=== PATIENT | female | born 1970 | race African-American/Black ===

== ENCOUNTER 2017-10-15 01:15 | Emergency (ER) | payer BC, OTHER ==
[2017-10-15] MEDS ORDERED: Lidocaine Viscous Sol 2% 15 ml UD Cup ONE (02:39)
== END 2017-10-15 03:27 | disposition home or self-care (01) ==
LOC: ERS 01:15
DX: J38.7 Other diseases of larynx (principal); I10 Essential (primary) hypertension; F17.210 Nicotine dependence, cigarettes, uncomplicated; Z79.899 Other long term (current) drug therapy
CPT/HCPCS: 99282

== ENCOUNTER 2017-10-17 23:59 | Emergency (ER) | payer BC | END 2017-10-18 00:35 | disposition home or self-care (01) | LOC: ERS 23:59 | DX: F41.1 Generalized anxiety disorder (principal); J39.2 Other diseases of pharynx; I10 Essential (primary) hypertension; F17.210 Nicotine dependence, cigarettes, uncomplicated; Z79.899 Other long term (current) drug therapy; Z71.6 Tobacco abuse counseling | CPT/HCPCS: 93005; 99406 ==

== ENCOUNTER 2017-10-20 02:53 | Emergency (ER) | payer BC ==
[2017-10-20 04:02] LABS: Anion Gap 10 mmol/L (10-20); BUN (Urea Nitrogen) 10 mg/dL (7.0-18.7); Calc. Creatinine Clearance 0 mL/min (70-130); Calcium 8.5 mg/dL (7.8-10.44); Carbon Dioxide 27 mmol/L (22-29); Chloride 108 mmol/L (98-107); Estimated GFR-MDRD Greater than 90; Glucose 87 mg/dL (70-105); Potassium 3.4 mmol/L (3.5-5.1); Sodium 142 mmol/L (136-145)
--- NOTE | 2017-10-31 11:45 | EKG ---
Test Reason : Blood Pressure : / mmHG Vent. Rate : 067 BPM Atrial Rate : 067 BPM P-R Int : 152 ms QRS Dur : 086 ms QT Int : 412 ms P-R-T Axes : 020 033 031 degrees QTc Int : 435 ms Normal sinus rhythm Normal ECG Confirmed by JAYDE AJMIL, WINDY Diane ([id number]), market editor NELY JIMENEZ ([id number]) on 10/31/2017 11:44:21 AM Referred By: Confirmed By:WINDY DONOHUE MD
== END 2017-10-20 04:57 | disposition home or self-care (01) ==
LOC: ERS 02:53
DX: R60.0 Localized edema (principal); I10 Essential (primary) hypertension; F17.210 Nicotine dependence, cigarettes, uncomplicated; Z79.899 Other long term (current) drug therapy
CPT/HCPCS: 36415; 80048; 82550; 83880; 85025; 85060; 93005; 99406

== ENCOUNTER 2017-10-21 12:44 | Inpatient (IN) | payer BC ==
[~2017-10-21 12:44] MED LIST: ISOVUE-370 76%-LOCM 1 ML ONE
[2017-10-21 12:51] VITALS: BMI 32.1
[2017-10-21] MEDS ORDERED: HYDROcodone/Acetaminophen 10/325 mg Tablet PO PRN ×2 (14:29)
[2017-10-21] MEDS ORDERED: Acetaminophen 325 MG TAB PO PRN (14:29)
[2017-10-21] MEDS ORDERED: Furosemide 40 MG/4 ML VIAL SLOW IVP SCH (14:45)
[2017-10-21 14:54] LABS: #Eosinphils 0.2 thou/uL (0.0-0.7); #Lymphocytes 1.3 thou/uL (1.20-3.40); #Monocytes 0.7 thou/uL (0.11-0.59); #Neutrophils 5.5 thou/uL (1.40-6.50); %Basophils 0.5 % (0.0-1.0); %Eosinophils 2.4 % (0.0-10.0); %Lymphocytes 16.4 % (21.0-51.0); %Monocytes 8.9 % (0.0-10.0); %Neutrophils 71.7 % (42.0-75.0); Hemoglobin 6.2 g/dL (12.0-16.0); Mean Corpuscular HGB CONC 30.4 g/dL (32.0-36.0); Mean Corpuscular Volume 72.2 fl (81.0-99.0); Mean Platelet Volume 7.2 fL (7.4-10.4); Platelet Count 525 thou/uL (130-400); Red Blood Cell (RBC) Count 2.81 mill/uL (4.20-5.40); White Blood Cell (WBC) Count 7.7 thou/uL (4.8-10.8)
[2017-10-21 15:29] LABS: CKMB 0.8 ng/mL (0-6.6); Troponin I 0.061 ng/mL (< 0.028)
[2017-10-21] MEDS: Sodium Chloride 0.9% 1,000 ML IV SCH (16:35)
--- NOTE | 2017-10-21 16:47 | RAD ---
TWO VIEW CHEST: History: Shortness of breath. Comparison: 11-19-16 FINDINGS: Heart size is upper normal. Lungs are clear. No infiltrates seen. No effusion. Osseous structures are unremarkable. IMPRESSION: No acute finding. POS: [facility]
[2017-10-21] MEDS: Ondansetron HCl/PF 4 MG/2 ML Vial SLOW IVP PRN ×2 (16:56→22:53)
[2017-10-21 18:15] LABS: Prothrombin Time 13.7 SEC (12.0-14.7)
[2017-10-21 18:41] LABS: BHCG - Serum Negative (NEGATIVE); Pregs Control Background? CLEAR/WHITE (CLR/WHITE); Pregs Control Bar Appear? YES (CONTROL BAR)
[2017-10-21 18:42] LABS: CKMB 0.7 ng/mL (0-6.6); Troponin I 0.061 ng/mL (< 0.028)
--- NOTE | 2017-10-21 20:49 | HP ---
PRIMARY CARE PHYSICIAN: Jerome Mayberry MD CHIEF COMPLAINT: Shortness of breath. HISTORY OF PRESENT ILLNESS: The patient has bounced back to the emergency department several times o wendi the last week complaining of shortness of breath and lower extremity edema which was found to be pitting my exam when seen yesterday in clinic. She does report intermittent gastrointestinal bleed b oth bright red and dark tarry per rectum last known GI bleeding in stool was this weekend. The patie nt states that she has had a sore throat, possibly secondary to gastroesophageal reflux disease sympt oms and was taking increasingly higher levels of Aleve and ibuprofen on an outpatient basis for this pain. She was given a dose of steroids and Lasix in the emergency department which she had completed the steroids and only just started the Lasix on an outpatient basis for lower extremity edema. Labs on the outside of the hospital, hemoglobin found to be 6.0 with abnormal platelets. She had stopped taking her iron pill for iron deficiency anemia. Months prior, she was lost to follow up regarding her cervical cancer and she has seen Dr. Magaña on an outpatient basis regarding prior cardiology poncho p. The patient was directed for direct admission for blood transfusion given symptomatic anemia. Sh e verbalized understanding and presented to the hospital. FORMAL REVIEW OF SYSTEMS: No fevers, no chills. Positive fatigue. No cough. Positive sore throat. No chest pain. Positive shortness of breath, lower extremity edema is positive. No abdominal pain . Positive gastrointestinal bleeding. No nausea, vomiting, or constipation currently. No headache or vision changes. No vaginal bleeding per patient. 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 The patient failed to follow up last appointment. The patient is a nonsmoker. No current alcoh ol use reported. Mother with diabetes, father with history of heart disease. OUTPATIENT MEDICATIONS: New start pantoprazole x24 hours, metoprolol 25 mg, lisinopril 2.5 mg, mitchel us sulfate 325 mg restarted yesterday on an outpatient basis, held the patient's statin secondary to myositis issues. The patient failed to follow up or establish care either with Dr. Solares on outpatie nt basis for Rheumatology. Stress test performed last year was somewhat positive; however, a heart c atheterization was negative. Last reported treatment with cisplatin was 12/12/2015. PHYSICAL EXAMINATION: VITAL SIGNS: Temperature of 98.9, pulse of 68, respiratory rate of 16, oxygen saturation 98% on room air, blood pressure 133/73. GENERAL: The patient is alert and oriented, no acute distress. HEENT: Normocephalic, atraumatic. Extraocular movements are intact. Poor dentition is noted. NECK: Supple. HEART: Regular rate and rhythm. No murmurs auscultated. LUNGS: Clear to auscultation bilaterally. No rubs or wheezes. ABDOMEN: Soft, nontender, positive bowel sounds throughout. : Digital rectal exam produced no stool in rectal vault. No gross bleeding. No gross hemorrhoids found on exam. NEUROLOGIC: The patient is alert and oriented x3, no focal deficits. Speech is normal. EXTREMITIES: Lower extremities with 2+ pitting edema bilaterally. LABORATORY WORK: Troponin 0.061, hemoglobin of 6.2, platelet count of 529, MCV of 72. Outpatient ch emistry: Potassium of 3.3, 142 sodium, 107 chloride, 28 CO2, BUN of 9, creatinine of 0.77, total sarwat irubin 0.3, AST of 72, ALT of 132. BNP of 121, albumin of 3.5. The patient typed and crossed for 2 units red blood cells, found to have antibody positive. Chest x-ray without acute cardiopulmonary ev ents. CT abdomen pending. ASSESSMENT AND PLAN: Symptomatic anemia secondary to gastrointestinal bleed and iron deficiency, cer vical cancer, autoimmune myositis, making the patient n.p.o. until seen by GI for determination of po ssible upper or lower scopes. We will cover with IV fluids in the interim. Given the patient's lowe r extremity edema, we will cover with Lasix in between units of packed red blood cells. We will cont inue patient's home medications regarding her history of abnormal stress test. Her troponin is indet erminate, again which has been positive for over the last 2 years without remission with a clean cath eterization last year. We will go ahead and trend at this point in time. Review EKG. The patient f holly to follow up with Rheumatology on an outpatient basis. May consider restarting prednisone for chronic muscle breakdown. We will follow up on abdomen and pelvis CT, regarding patient's cancer sta tus as she has failed follow up with her, Heme/Onc doctor at [facility] on an outpatient basis i n the last 9 months. We will follow up on GI's recommendations transfusing the patient 2 units PRBCs .
[2017-10-21] MEDS ORDERED: GoLYTELY 4,000 ml Bottle PO SCH (21:00)
--- NOTE | 2017-10-21 21:00 | CT ---
CT ABDOMEN AND PELVIS WITH AND WITHOUT CONTRAST 10/21/17 HISTORY: Cervical cancer. Blood in stool. COMPARISON: None. FINDINGS: On the precontrast image sequence there is nonobstructive punctate calculus in interpolar left kidney . There is moderate left sided hydroureteronephrosis down to the level of the pelvis. No obstructing calculus is seen. There is likely radiation change of the pelvis with abnormal thickening of the mesorectal fat. There is also abnormal thickening of the rectal wall. The presacral soft tissues are thickened and edematou s. There is scarring throughout the pelvic cul-de-sac as well as lower anterior abdominal wall. On e 90 second venous phase as well as the delay phase there is decrease enhancement and decreased contr ast excretion, respectively, of the left kidney. Both ureteral jets, are felt to be seen. This is lik jacqueline left ureteral narrowing due to scar or fibrotic changes. No dilated loops of large or small bowel. Cholelithiasis is present without evidence of cholecystitis . The spleen and pancreas are both unremarkable. Loss of normal trabecula of L4 and L5 likely post radiation in nature. Bilateral IIb lumbosacral arriaga sitional vertebra. IMPRESSION: 1. Likely chronic, partially obstructive distal left ureter with mild to moderate left hydrouret eronephrosis. Although there is a punctate interpolar left renal calculus, this is felt likely due to scarring from likely posttreatment radiation change. 2. Severely abnormal thickening of the rectal wall may be post radiation change in nature. There is also edema or scar in the presacral space and within the medial rectal fat and fascia. 3. Cholelithiasis without cholecystitis. 4. Decreased left sided renal enhancement and delayed excretion of contrast left kidney indicati ng this is somewhat of an obstructive process. POS: [facility]
[2017-10-21 21:20] LABS: CKMB 0.6 ng/mL (0-6.6); Troponin I 0.048 ng/mL (< 0.028)
[2017-10-21] MEDS: Metoprolol Tartrate 25 MG TAB PO SCH (21:49)
[2017-10-21] MEDS: Pantoprazole 40 MG VIAL IVP SCH (21:50)
[2017-10-22] MEDS: Sodium Chloride 0.9% 1,000 ML IV SCH ×3 (04:27→20:51)
--- NOTE | 2017-10-22 05:02 | CON ---
DATE OF CONSULTATION: 10/21/2017 REASON FOR CONSULTATION: Anemia. CONSULTING PHYSICIAN: Dr. Jerome Mayberry. HISTORY OF PRESENT ILLNESS: The patient is a 47-year-old female with past medical history of vitamin D deficiency, autoimmune myositis, GERD, cervical cancer, status post chemotherapy and chronic anemi a presenting with symptomatic anemia. Upon chart review, patient was noted to have been seen in the emergency department several times over the last week complaining of increased shortness of breath an d lower extremity edema with administration of Lasix to assist with lower extremity edema. However, upon routine labs, she was noted to have significantly decreased hemoglobin, which prompted further q uestioning. Per my interview, she states that she has been having intermittent hematochezia characte rized as bright red blood per rectum present in both stool and on the toilet paper for the last year. She states that some blood clots will be present and mixed in with her stool, but not associated wi th increased abdominal pain or rectal irritation rather she would get the "sensation of bleeding and then it would come." Also per chart review and per patient, she had been having increased substernal chest pain and midepigastric abdominal pain for which she had been taking increasing doses of Aleve and ibuprofen for pain control. With this particular pain, she endorses increased nausea and vomitin g monthly that has also been present over the last 6-12 months. She also endorses episodes of regurg itation and acid taste in her mouth, but does not complain of substernal pyrosis. Her most recent ep isode of nausea and vomiting was earlier today with nonbloody emesis, but she has had episodes of suresh ker colored emesis in the past. Her nausea and vomiting is worse with spicy greasy foods as well as some tomato based products and also associated with intermittent episodes of dysphagia where she gets a sensation that food does not adequately move into the stomach. Currently, she denies any fevers, chills, overt abdominal pain, odynophagia, weight loss, or hematemesis. REVIEW OF SYSTEMS: Ten category review of systems was obtained with all responses negative except fo r the pertinent positives as listed in the HPI. PAST MEDICAL HISTORY: As per HPI. PAST SURGICAL HISTORY: Bilateral inguinal hernia repair. FAMILY HISTORY: No GI malignancies. OUTPATIENT MEDICATIONS: Reviewed. ALLERGIES: No known drug allergies. PHYSICAL EXAMINATION: VITAL SIGNS: Temperature of 98.7, pulse 77, blood pressure 166/84, respiratory rate 18, satting 96% on room air. GENERAL: Patient is lying in bed in no acute distress. Alert and oriented x4. NECK: Supple. No JVD noted. CARDIOVASCULAR: Regular rate and rhythm with no discernible murmurs, gallops or rubs. RESPIRATORY: Clear to auscultation bilaterally with no discernible wheezes or rales. ABDOMEN: Normoactive bowel sounds, soft, nontender, nondistended. EXTREMITIES: No cyanosis, clubbing, 1+ edema to mid driscoll was noted bilaterally. LABORATORY DATA: CBC with a white blood cell count of 7.7, hemoglobin 6.2, hematocrit 20.3, and plat elets 525. INR 1.0, troponin trending down at 0.048, negative screen. IMAGING DATA: CT of the abdomen and pelvis obtained on admission showed likely chronic partially obs tructive distal left ureter with mild to moderate left hydroureteronephrosis and it also showed sever jacqueline abnormal thickening of the rectal wall which may be post-radiation change due to treatment of cer vical cancer. Also noted was cholelithiasis without cholecystitis. ASSESSMENT AND PLAN: The patient is a 47-year-old female with past medical history of vitamin D defi ciency, autoimmune myositis, GERD, cervical cancer status post chemo and possible x-ray therapy and c hronic anemia presenting with symptomatic anemia. Symptomatic anemia. The patient was presenting throughout this last week with complaints of increase d shortness of breath and dyspnea on exertion with a significantly decreased H&H noted on routine lab s. She also endorses a history of chronic hematochezia that has been present over the last year, edwina racterized as bright red blood per rectum, both in the toilet and on the toilet paper. She denies an y overt abdominal bleeding or exacerbations of her other symptoms when this bleeding occurs. She als o endorses increased episodes of nausea and vomiting that has also been occurring over the last years , sometimes with darker colored emesis, but no overt hematemesis. Given the history of repeated epis odes of nausea and vomiting, erosive esophagitis within the differential that could potentially creat e GI bleeding and contributing to her symptomatic anemia. However, I think more likely is the repeat ed occurrences of hematochezia as well as severe abnormal thickening of the rectal wall with a histor y of cervical cancer with possible x-ray therapy contributing to a possible radiation proctitis pictu re. With the worsening of her nausea and vomiting with spicy, greasy foods, it does tend lend itself more towards a diagnosis of acid reflux rather than other overt underlying pathology. RECOMMENDATIONS: 1. Would continue to trend her hemoglobin and hematocrit and transfuse as necessary to maintain hemo globin and hematocrit of 7/21. 2. Would continue patient on pantoprazole 40 mg b.i.d. for possible upper gastrointestinal bleeding source and exacerbation of coexisting GERD. 3. We will continue to monitor clinically for signs of overt gastrointestinal bleed. 4. Please make patient n.p.o. at midnight in anticipation of both EGD and colonoscopy tomorrow with GoLYTELY prep administered tonight in anticipation of these procedures. We will continue to follow. Please call with any questions.
[2017-10-22] MEDS ORDERED: Fleet Enema 133 ML BOT FS SCH (07:45)
[2017-10-22] MEDS ORDERED: Ferrous Sulfate 325 MG TAB PO SCH (08:00)
[2017-10-22] MEDS: Ondansetron HCl/PF 4 MG/2 ML Vial SLOW IVP PRN (08:43)
[2017-10-22] MEDS: Pantoprazole 40 MG VIAL IVP SCH ×2 (09:33→20:52)
[2017-10-22] MEDS ORDERED: GoLYTELY 4,000 ml Bottle PO SCH (13:08)
[2017-10-22] MEDS: Lisinopril 5 MG TAB PO SCH (14:06)
[2017-10-22] MEDS: Metoprolol Tartrate 25 MG TAB PO SCH ×2 (14:06→20:52)
[2017-10-22] MEDS: Furosemide 20 MG TAB PO SCH (14:07)
[2017-10-22] MEDS ORDERED: Lidocaine 1% PF 5 ML VIAL ONE (15:50)
--- NOTE | 2017-10-22 17:44 | EKG ---
Test Reason : Blood Pressure : / mmHG Vent. Rate : 062 BPM Atrial Rate : 062 BPM P-R Int : 148 ms QRS Dur : 082 ms QT Int : 408 ms P-R-T Axes : 056 024 034 degrees QTc Int : 414 ms Normal sinus rhythm Normal ECG When compared with ECG of 20-OCT-2017 03:38, (Unconfirmed) No significant change was found Confirmed by DR. Ary FERNANDES ([id number]) on 10/22/2017 5:43:23 PM Referred By: KURTIS Confirmed By:DR. Ary FERNANDES
--- NOTE | 2017-10-22 17:52 | PRG ---
DATE OF SERVICE: 10/22/2017 HISTORY OF PRESENT ILLNESS: The patient states she has improved energy and less shortness of breath following 2 units of PRBCs. Nursing staff report a stool Hemoccult returned positive and also report that the patient underwent poor bowel prep initially, repeated Fleet enema and GoLYTELY prep and is currently back down with Gastroenterology suite for endoscopy. PHYSICAL EXAMINATION: VITAL SIGNS: Temperature of 98.4, pulse of 63, respiratory rate of 18, oxygen saturation 95% on room air, blood pressure 130/73. GENERAL: The patient is alert and oriented, in no acute distress. HEENT: Head is normocephalic, atraumatic. Extraocular movements are intact. Sclerae are clear. Or al mucosa is moist. Poor dentition is noted. NECK: Supple. HEART: Regular rate and rhythm. No murmurs auscultated at the time of exam. LUNGS: Clear to auscultation bilaterally. No rubs or wheezes. ABDOMEN: Soft, nontender, positive bowel sounds throughout. EXTREMITIES: Lower extremities with 2+ pitting edema. No cyanosis present. NEUROLOGIC: The patient is alert and oriented x3, no focal deficits. Speech is normal. LABORATORY DATA: Hemoglobin improved to 28. ASSESSMENT AND PLAN: Symptomatic anemia, much improved following transfusion. Serial hemoglobins re mained stable. Occult blood positive for gastrointestinal bleed. GI, pending scopes. Continuing IV Protonix at this point in time. Regarding the patient's history of cervical cancer, CT did show pro ctitis likely secondary to radiation treatment prior, unclear if this or other etiology causing patie nt's bleed. Follow up on scope per Gastroenterology.
[2017-10-22] MEDS ORDERED: Promethazine HCl 25 MG/ML VIAL SLOW IVP PRN (18:12)
[2017-10-22] MEDS ORDERED: Ondansetron HCl/PF 4 MG/2 ML Vial IVP PRN (18:12)
[2017-10-22] MEDS ORDERED: Morphine Sulfate 2 MG/ML SYRINGE SLOW IVP PRN (18:12)
--- NOTE | 2017-10-22 21:32 | OP ---
DATE OF PROCEDURE: 10/22/2017 PROCEDURE: Esophagogastroduodenoscopy and colonoscopy. PREOPERATIVE DIAGNOSIS: Gastrointestinal bleed. OPERATIVE PROCEDURE IN DETAIL: Informed consent was obtained from the patient. She was sedated with total intravenous anesthesia. The bite block was placed and the endoscope was advanced easily to th e second portion of the duodenum and retroflexion was performed in the stomach. The esophagus was no rmal. The GE junction was normal. The stomach was normal including retroflexed views. The pylorus and first and second portions of the duodenum were normal. The patient was turned around. Rectal ex am was performed that was normal. The colonoscope was advanced to the terminal ileum without difficu lty. The mucosa of the terminal ileum was normal. The ileocecal valve and appendiceal orifice were clearly identified. The preparation quality was good. There was severe radiation colitis of the dis lionel 27 cm of the colon and rectum. There is a more dense patch that looks like more significant pote ntial bleeding source at 20 cm. Argon plasma coagulation was not available today due to an equipment failure. Retroflex views in the rectum were otherwise unremarkable. IMPRESSION: 1. Normal esophagogastroduodenoscopy. 2. 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 There is more dense area a t 20 cm. 3. Otherwise normal ileal colonoscopy. RECOMMENDATIONS: 1. Trial of iron supplementation. She can be given ferrous sulfate 325 mg twice daily. If her hemo globin fails to return to normal, then consider iron IV. 2. If her anemia persists despite the iron or if she has continued overt bleeding, then consider rep eat colonoscopy to attempt argon plasma coagulation to the radiation colitis. This would likely requ eloisa multiple sessions to burn such an extensive area and there is a risk that ultimately bleeding can persist or worsen with despite argon plasma coagulation. 3. Follow up with Dr. Rivas in the office. 4. Recheck her hemoglobin tomorrow morning. If her hemoglobin remains stable and she does not have further overt bleeding, then she can likely discharge home tomorrow. Please note that there was no r ed blood or evidence of active bleeding at the time of the colonoscopy.
[2017-10-23 05:07] LABS: #Basophils 0.1 thou/uL (0.0-0.2); #Eosinphils 0.3 thou/uL (0.0-0.7); #Lymphocytes 1.2 thou/uL (1.20-3.40); #Monocytes 0.8 thou/uL (0.11-0.59); #Neutrophils 5.4 thou/uL (1.40-6.50); %Basophils 0.8 % (0.0-1.0); %Eosinophils 3.4 % (0.0-10.0); %Lymphocytes 15.7 % (21.0-51.0); %Monocytes 10.7 % (0.0-10.0); %Neutrophils 69.4 % (42.0-75.0); Mean Corpuscular HGB CONC 31.2 g/dL (32.0-36.0); Mean Corpuscular Hemoglobin 23.8 pg (27.0-31.0); Mean Corpuscular Volume 76.2 fl (81.0-99.0); Mean Platelet Volume 7.6 fL (7.4-10.4); Platelet Count 439 thou/uL (130-400); RBC Distribution Width 19.6 % (11.5-14.5); Red Blood Cell (RBC) Count 3.35 mill/uL (4.20-5.40); White Blood Cell (WBC) Count 7.8 thou/uL (4.8-10.8)
[2017-10-23 05:20] LABS: ALT (SGPT) 53 U/L (8-55); AST (SGOT) 20 U/L (5-34); Albumin 3.1 g/dL (3.5-5.0); Alkaline Phosphatase 65 U/L (40-150); Anion Gap 9 mmol/L (10-20); BUN (Urea Nitrogen) 9 mg/dL (7.0-18.7); Bilirubin, Total 0.5 mg/dL (0.2-1.2); Calc. Creatinine Clearance 132 mL/min (70-130); Calcium 8.5 mg/dL (7.8-10.44); Carbon Dioxide 29 mmol/L (22-29); Chloride 108 mmol/L (98-107); Estimated GFR-MDRD 89; Globulin 2.7 g/dL (2.4-3.5); Glucose 93 mg/dL (70-105); Potassium 3.5 mmol/L (3.5-5.1); Protein, Total 5.8 g/dL (6.0-8.3); Sodium 142 mmol/L (136-145)
[2017-10-23] MEDS: Sodium Chloride 0.9% 1,000 ML IV SCH (05:22)
[2017-10-23] MEDS ORDERED: Ferrous Sulfate 325 MG TAB PO SCH (08:00)
[2017-10-23 08:17] VITALS: BP 141/88; TEMP 97.8
[2017-10-23] MEDS: Lisinopril 5 MG TAB PO SCH (08:21)
[2017-10-23] MEDS: Metoprolol Tartrate 25 MG TAB PO SCH (08:22)
[2017-10-23] MEDS: Pantoprazole 40 MG VIAL IVP SCH (08:23)
[2017-10-23] MEDS: Furosemide 20 MG TAB PO SCH (08:24)
--- NOTE | 2017-10-26 09:44 | DIS ---
DATE OF ADMISSION: 10/21/2017 DATE OF DISCHARGE: 10/23/2017 PRIMARY CARE PHYSICIAN: Jerome Mayberry M.D. PRESENTING HISTORY OF PRESENT ILLNESS: The patient had bounced back to the ER multiple times in the last week and has followed up in the clinic with myself, reported intermittent blood in the stool, th e last of which was the weekend prior to admission. The patient states she had some acid reflux symp toms presenting as chest pain, which she had presented in the emergency department for. The patient had negative cardiac catheterization last year regarding chronic elevation of troponins secondary to autoimmune myositis. The patient was lost to follow up, never established with Rheumatology on an ou tpatient basis. The patient with a history of cervical cancer treated with chemo and radiation, last treatments were approximately 2 years ago now. The patient failed to take her iron supplement secon rae to the pain as above. She started taking NSAIDs more vigorously. She remains fatigued and shor tness of breath, found to have hemoglobin of 6 on outpatient check. Patient directly admitted for tr ansfusion for symptomatic anemia, started on PPI, restarted on iron. Gastroenterology was consulted for upper and lower evaluation. Upper scope unremarkable. Lower scope showed approximately 10 cm of proctitis secondary to post-radiation changes, not actively bleeding; however, the patient's guaiac while inpatient was positive for blood. The patient maintained hemoglobin following transfusion, wendi balized understanding regarding need to follow up in clinic and maintain new medications. Plan per Gastroenterology if the patient continues to bleed would be an ablation therapy. Given the length of the rectum and colon affected, would likely need multiple procedures. This was discussed w ith patient. She may need [employer] paperwork given her job status. She has only been off for 6 months a nd does not have any paid time off. CONSULTATIONS: Include Gastroenterology with Dr. Rivas. Procedure performed by Dr. Barbosa injection molding operator. DISCHARGE DIAGNOSES: Include symptomatic anemia, gastroesophageal reflux disease, cervical cancer in remission currently. Autoimmune myositis unspecified, elevated troponin, chronic proctitis, postrad iation changes. DISCHARGE MEDICATIONS: Included ferrous sulfate 325 mg b.i.d., Lasix 20 mg daily, lisinopril 2.5 mg daily, metoprolol 12.5 mg b.i.d., Protonix 40 mg daily. FOLLOWUP: With myself, Dr. Jerome Mayberry next week, with Gastroenterology in the next month. DISCHARGE DIET: Regular. DISCHARGE ACTIVITY: As tolerated, released to work on next shift. DISCHARGE CONDITION: Good.
== END 2017-10-23 10:05 | disposition home or self-care (01) | DRG 379 ==
LOC: 2NO 12:44
PROVIDERS: ADMIT Family Medicine; ATTEND Family Medicine
PROC: 30233N1 Transfusion of Nonautologous Red Blood Cells into Peripheral Vein, Percutaneous Approach (ICD-10-PCS; 2017-10-21)
PROC: 0DJ08ZZ Inspection of Upper Intestinal Tract, Via Natural or Artificial Opening Endoscopic (ICD-10-PCS; principal; 2017-10-22)
PROC: 0DJD8ZZ Inspection of Lower Intestinal Tract, Via Natural or Artificial Opening Endoscopic (ICD-10-PCS; 2017-10-22)
DX: K92.1 Melena (principal); D50.0 Iron deficiency anemia secondary to blood loss (chronic); K21.9 Gastro-esophageal reflux disease without esophagitis; Z85.41 Personal history of malignant neoplasm of cervix uteri; Z91.19 Patient's noncompliance with other medical treatment and regimen; M60.80 Other myositis, unspecified site; K62.7 Radiation proctitis; Z92.21 Personal history of antineoplastic chemotherapy
CPT/HCPCS: 36415; 36430; 71046; 74178; 80053; 82274; 82553; 84484; 84703; 85014; 85025; 85610; 86850; 86870; 86900; 86901; 86905; 86922; 93005; 93010; A4216; C9113; J1940; J2001; J2405; P9016

== ENCOUNTER 2017-11-06 19:42 | Emergency (ER) | payer BC | END 2017-11-06 20:28 | disposition home or self-care (01) | LOC: ERS 19:42 | DX: I10 Essential (primary) hypertension (principal); F17.210 Nicotine dependence, cigarettes, uncomplicated; Z79.899 Other long term (current) drug therapy | CPT/HCPCS: 99283 ==

== ENCOUNTER 2017-11-30 00:13 | Emergency (ER) | payer BC ==
[2017-11-30 01:31] LABS: Hemoglobin 9.5 g/dL (12.0-16.0); Mean Corpuscular Hemoglobin 26.7 pg (27.0-31.0); Mean Corpuscular Volume 83.5 fl (81.0-99.0); Mean Platelet Volume 8.6 fL (7.4-10.4); Platelet Count 263 thou/uL (130-400); RBC Distribution Width 21.9 % (11.5-14.5); Red Blood Cell (RBC) Count 3.54 mill/uL (4.20-5.40); White Blood Cell (WBC) Count 7.8 thou/uL (4.8-10.8)
[2017-11-30 01:37] LABS: ALT (SGPT) 24 U/L (8-55); AST (SGOT) 30 U/L (5-34); Albumin 3.5 g/dL (3.5-5.0); Alkaline Phosphatase 53 U/L (40-150); Anion Gap 8 mmol/L (10-20); BUN (Urea Nitrogen) 10 mg/dL (7.0-18.7); Bilirubin, Total 0.4 mg/dL (0.2-1.2); Calc. Creatinine Clearance 0 mL/min (70-130); Calcium 9.1 mg/dL (7.8-10.44); Carbon Dioxide 28 mmol/L (22-29); Chloride 107 mmol/L (98-107); Estimated GFR-MDRD Greater than 90; Globulin 3.1 g/dL (2.4-3.5); Glucose 101 mg/dL (70-105); Potassium 3.3 mmol/L (3.5-5.1); Protein, Total 6.6 g/dL (6.0-8.3); Sodium 140 mmol/L (136-145)
[2017-11-30 01:42] LABS: Troponin I 0.023 ng/mL (< 0.028)
[2017-11-30 01:48] LABS: #Eosinphils 0.4 thou/uL (0.0-0.7); #Lymphocytes 1.3 thou/uL (1.20-3.40); #Monocytes 0.7 thou/uL (0.11-0.59); #Neutrophils 5.3 thou/uL (1.40-6.50); %Basophils 0.5 % (0.0-1.0); %Eosinophils 5.6 % (0.0-10.0); %Lymphocytes 16.7 % (21.0-51.0); %Monocytes 9.1 % (0.0-10.0); %Neutrophils 68.1 % (42.0-75.0); Anisocytosis SLIGHT = 6-15 cells (100X) (0-5/hpf); Elliptocytes SLIGHT = 2-5 cells (100X) (0-1/hpf); MDiff Complete? YES
--- NOTE | 2017-11-30 08:34 | RAD ---
CHEST 1 VIEW: Date: 11/30/17 HISTORY: Dyspnea. COMPARISON: 10/21/17. FINDINGS: Cardiac silhouette is magnified by projection. Pulmonary vasculature is unremarkable. Mediastinum is midline. No lobar consolidation or evidence of pneumothorax. wood preserving plant laborer leads overlie the chest. IMPRESSION: No active cardiopulmonary abnormalities are demonstrated. POS: [facility]
== END 2017-11-30 02:13 | disposition home or self-care (01) ==
LOC: ERS 00:13
DX: F43.9 Reaction to severe stress, unspecified (principal); I10 Essential (primary) hypertension; Z85.41 Personal history of malignant neoplasm of cervix uteri
CPT/HCPCS: 36415; 71045; 80053; 82553; 84484; 85025; 93005

== ENCOUNTER 2017-12-10 18:32 | Emergency (ER) | payer BC ==
[2017-12-10 19:01] LABS: Bilirubin Negative (Negative); Blood, Urine Negative (Negative); Clarity CLEAR (Clear); Glucose, Urine (Dipstick) Negative (Negative); Leukocyte Small (Negative); Nitrite Negative (Negative); Protein, Urine (Dipstick) Negative (Neg-Trace); Specific Gravity, Urine 1.018 (1.002-1.036); Urobilinogen 0.2 mg/dL (0.2-1.0)
[2017-12-10 19:04] LABS: Bacteria/HPF None Seen HPF (None Seen); Hyaline Casts/LPF 0-3 HYALINE CAST LPF (0-3 Hyaline); Pathc Cast-AUWi Flag 0.43 (0-2.49); RBC/HPF 0-3 HPF (0-3); Squamous Epithelial 0-3 HPF (0-3); WBC/HPF 0-3 HPF (0-3)
[2017-12-10 19:10] LABS: #Eosinphils 0.3 thou/uL (0.0-0.7); #Lymphocytes 1.3 thou/uL (1.20-3.40); #Monocytes 0.5 thou/uL (0.11-0.59); #Neutrophils 4.1 thou/uL (1.40-6.50); %Basophils 0.7 % (0.0-1.0); %Eosinophils 4.3 % (0.0-10.0); %Lymphocytes 21.2 % (21.0-51.0); %Monocytes 7.5 % (0.0-10.0); %Neutrophils 66.3 % (42.0-75.0); Mean Corpuscular HGB CONC 32.2 g/dL (32.0-36.0); Mean Corpuscular Hemoglobin 27.1 pg (27.0-31.0); Platelet Count 406 thou/uL (130-400); RBC Distribution Width 20.5 % (11.5-14.5); Red Blood Cell (RBC) Count 4.06 mill/uL (4.20-5.40); White Blood Cell (WBC) Count 6.2 thou/uL (4.8-10.8)
[2017-12-10 19:33] LABS: ALT (SGPT) 12 U/L (8-55); AST (SGOT) 18 U/L (5-34); Albumin 3.9 g/dL (3.5-5.0); Alkaline Phosphatase 56 U/L (40-150); Anion Gap 14 mmol/L (10-20); BUN (Urea Nitrogen) 13 mg/dL (7.0-18.7); Bilirubin, Total 0.2 mg/dL (0.2-1.2); Calc. Creatinine Clearance 0 mL/min (70-130); Carbon Dioxide 25 mmol/L (22-29); Chloride 106 mmol/L (98-107); Estimated GFR-MDRD Greater than 90; Globulin 3.6 g/dL (2.4-3.5); Glucose 90 mg/dL (70-105); Potassium 4.1 mmol/L (3.5-5.1); Protein, Total 7.5 g/dL (6.0-8.3); Sodium 141 mmol/L (136-145)
== END 2017-12-10 20:13 | disposition home or self-care (01) ==
LOC: ERS 18:32
DX: R42 Dizziness and giddiness (principal); I10 Essential (primary) hypertension; Z79.899 Other long term (current) drug therapy
CPT/HCPCS: 36415; 80053; 81003; 81015; 85025; 93005

== ENCOUNTER 2018-04-08 13:24 | Emergency (ER) | payer BC ==
[2018-04-08 13:59] LABS: #Eosinphils 0.2 thou/uL (0.0-0.7); #Lymphocytes 1.3 thou/uL (1.20-3.40); #Monocytes 0.5 thou/uL (0.11-0.59); #Neutrophils 3.4 thou/uL (1.40-6.50); %Basophils 0.6 % (0.0-1.0); %Eosinophils 3.9 % (0.0-10.0); %Lymphocytes 23.5 % (21.0-51.0); %Monocytes 8.6 % (0.0-10.0); %Neutrophils 63.4 % (42.0-75.0); Hemoglobin 12.6 g/dL (12.0-16.0); Mean Corpuscular HGB CONC 33.3 g/dL (32.0-36.0); Mean Corpuscular Volume 87.2 fL (78.0-98.0); Mean Platelet Volume 7.2 fL (7.4-10.4); Platelet Count 244 thou/uL (130-400); RBC Distribution Width 14.1 % (11.5-14.5); Red Blood Cell (RBC) Count 4.35 mill/uL (4.20-5.40); White Blood Cell (WBC) Count 5.4 thou/uL (4.8-10.8)
[2018-04-08 14:22] LABS: ALT (SGPT) 14 U/L (8-55); AST (SGOT) 19 U/L (5-34); Albumin 3.8 g/dL (3.5-5.0); Alkaline Phosphatase 64 U/L (40-150); Anion Gap 13 mmol/L (10-20); BUN (Urea Nitrogen) 8 mg/dL (7.0-18.7); Bilirubin, Total 0.7 mg/dL (0.2-1.2); CK (CPK) 112 U/L (29-168); Calc. Creatinine Clearance 0 mL/min (70-130); Calcium 9.4 mg/dL (7.8-10.44); Carbon Dioxide 25 mmol/L (22-29); Chloride 106 mmol/L (98-107); Estimated GFR-MDRD Greater than 90; Globulin 3.7 g/dL (2.4-3.5); Glucose 95 mg/dL (70-105); Potassium 3.8 mmol/L (3.5-5.1); Protein, Total 7.5 g/dL (6.0-8.3); Sodium 140 mmol/L (136-145)
[2018-04-08 14:26] LABS: CKMB 1.3 ng/mL (0-6.6); Troponin I 0.033 ng/mL (< 0.028)
--- NOTE | 2018-04-08 14:31 | RAD ---
PORTABLE AP CHEST: Date: 04/08/18 HISTORY: Chest pain. COMPARISON: 11/30/17. FINDINGS: Cardiac silhouette and pulmonary vasculature are within normal limits for the portable technique of t he study. The lungs remain clear. Degenerative changes are again seen in the spine. There has been no interval change from the prior exam. IMPRESSION: No acute cardiopulmonary process. POS: [facility]
[2018-04-08] MEDS ORDERED: Aspirin 81 mg Enteric Coated Tablet ONE (15:09)
[2018-04-08 17:43] LABS: Troponin I 0.038 ng/mL (< 0.028)
--- NOTE | 2018-04-10 16:38 | EKG ---
Test Reason : DIZZY Blood Pressure : / mmHG Vent. Rate : 079 BPM Atrial Rate : 079 BPM P-R Int : 156 ms QRS Dur : 086 ms QT Int : 382 ms P-R-T Axes : 067 051 041 degrees QTc Int : 438 ms Normal sinus rhythm Normal ECG Confirmed by OLGA SKINNER ([id number]), film editor supervisor NELY JIMENEZ ([id number]) on 04/10/2018 4:37:28 PM Referred By: Confirmed By:OLGA SKINNER
== END 2018-04-08 18:05 | disposition home or self-care (01) ==
LOC: ERS 13:24
DX: R07.89 Other chest pain (principal); R42 Dizziness and giddiness; R53.81 Other malaise; Z79.899 Other long term (current) drug therapy
CPT/HCPCS: 36415; 71045; 80053; 82553; 84443; 84484; 85025; 93005; 96360

== ENCOUNTER 2018-08-28 09:49 | Emergency (ER) | payer BC ==
[2018-08-28] MEDS ORDERED: Lidocaine 1% PF 5 ML VIAL ONE (11:15)
== END 2018-08-28 11:35 | disposition home or self-care (01) ==
LOC: ERS 09:49
DX: K04.7 Periapical abscess without sinus (principal); K03.81 Cracked tooth; F32.9 Major depressive disorder, single episode, unspecified; I10 Essential (primary) hypertension; Z79.899 Other long term (current) drug therapy
CPT/HCPCS: 99282; J2001

== ENCOUNTER 2018-09-30 12:16 | Observation (INO) | payer BC ==
[2018-09-30 13:05] LABS: #Basophils 0.1 thou/uL (0.0-0.2); #Eosinphils 0.1 thou/uL (0.0-0.7); #Lymphocytes 1.4 thou/uL (1.20-3.40); #Monocytes 0.4 thou/uL (0.11-0.59); #Neutrophils 2.4 thou/uL (1.40-6.50); %Basophils 1.6 % (0.0-1.0); %Eosinophils 2.4 % (0.0-10.0); %Monocytes 9.7 % (0.0-10.0); %Neutrophils 54.4 % (42.0-75.0); Hemoglobin 12.8 g/dL (12.0-16.0); Mean Corpuscular HGB CONC 31.9 g/dL (32.0-36.0); Mean Corpuscular Hemoglobin 29.7 pg (27.0-31.0); Mean Corpuscular Volume 93.1 fL (78.0-98.0); Mean Platelet Volume 7.5 fL (7.4-10.4); Platelet Count 222 thou/uL (130-400); RBC Distribution Width 12.4 % (11.5-14.5); Red Blood Cell (RBC) Count 4.32 mill/uL (4.20-5.40); White Blood Cell (WBC) Count 4.3 thou/uL (4.8-10.8)
[2018-09-30 13:22] LABS: ALT (SGPT) 20 U/L (8-55); AST (SGOT) 22 U/L (5-34); Albumin 3.9 g/dL (3.5-5.0); Alkaline Phosphatase 55 U/L (40-150); Anion Gap 11 mmol/L (10-20); BUN (Urea Nitrogen) 9 mg/dL (7.0-18.7); Calc. Creatinine Clearance 0 mL/min (70-130); Calcium 9.5 mg/dL (7.8-10.44); Carbon Dioxide 26 mmol/L (22-29); Chloride 106 mmol/L (98-107); Estimated GFR-MDRD 89; Globulin 3.3 g/dL (2.4-3.5); Glucose 91 mg/dL (70-105); Potassium 4.2 mmol/L (3.5-5.1); Protein, Total 7.2 g/dL (6.0-8.3); Sodium 139 mmol/L (136-145)
[2018-09-30] MEDS ORDERED: Aspirin Chewable 81 MG TAB ONE (13:53)
[2018-09-30] MEDS ORDERED: methylPREDNISolone Sod Succ/PF 125 MG/2 ML VIAL ONE (14:13)
[2018-09-30 14:35] LABS: Amphetamine Not Detected (NotDetected); Barbiturates Screen Not Detected (NotDetected); Benzodiazepine Screen Not Detected (NotDetected); Cocaine Metabolite Screen Not Detected (NotDetected); Medtox Control Line Valid? VALID (VALID); Medtox Reader # READER 1; Methadone Not Detected (NotDetected); Methamphetamine Not Detected (NotDetected); Opiate Screen Not Detected (NotDetected); Oxycodone Screen Not Detected (NotDetected); Phencyclidine (PCP) Not Detected (NotDetected); THC/Cannabinoid Screen Not Detected (NotDetected); Tricyclic Screen Not Detected (NotDetected)
[2018-09-30] MEDS ORDERED: Enoxaparin Sodium 40 MG/0.4 ML SYRINGE ONE (14:36)
--- NOTE | 2018-09-30 14:36 | RAD ---
CHEST 2 VIEWS: Date: 09/30/18 HISTORY: Chest pain. COMPARISON: Chest radiograph dated 04/08/18. FINDINGS: Lungs are clear. No pneumothorax or effusion. Cardiac silhouette and mediastinal contours are within normal limits. IMPRESSION: No acute intrathoracic abnormality. POS: [facility]
[2018-09-30 18:09] LABS: CKMB 1.5 ng/mL (0-6.6)
--- NOTE | 2018-10-01 01:21 | HP ---
This is a admit/discharge note in the Emergency Room. HISTORY OF PRESENT ILLNESS: This is a 47-year-old black female who presented to the ER with chest pain, nonradiating, which began 4 days ago. It has been occurring off and on. There is no associated nausea, vomiting, or diaphoresis. She has a history of indigestion and reflux, previously on Protonix, but had then stopped. She also has been taking Motrin on a regular basis. The patient was noted to have a slightly elevated troponin level, but a normal EKG. In reviewing the records, the patient had a normal cardiac cath in 01/2017 and I believe a normal Cardiolite stress test in 2018 according to the patient. The patient has a history of autoimmune disease with chronically elevated troponins and that is the reason the cardiac cath was done in 2016. The patient was told not to take any nonsteroidals and so therefore, the patient stopped taking ibuprofen and started taking Motrin with not realizing that the motion was also a nonsteroidal. A Cardiolite stress test was initiated in the ER. An echo had been done. PAST MEDICAL HISTORY: Includes autoimmune disease, GERD with esophagitis, radiation proctitis; history of cervical cancer in remission, status post chemo and radiation; chronic proctitis, and chronic anemia. PAST SURGICAL HISTORY: Include cardiac cath in 01/2017. FAMILY HISTORY: Positive for diabetes and heart disease. SOCIAL HISTORY: She is . She has 4 kids. She does not smoke and does not drink. She works for [employer] at [employer] for the past 1-1/2 years. MEDICATIONS: Include; 1. Ferrous sulfate 325 two tablets a day. 2. Lisinopril 2.5 daily. 3. Metoprolol 25 b.i.d. 4. Motrin daily p.r.n. ALLERGIES: NONE. REVIEW OF SYSTEMS: As above. PHYSICAL EXAMINATION: VITAL SIGNS: Blood pressure 123/75, pulse 68, respirations 16, and 98% saturations. GENERAL: No acute distress whatsoever. HEENT: Clear. HEART: Regular rate and rhythm. LUNGS: Clear. ABDOMEN: Soft. EXTREMITIES: With no edema. IMAGING STUDIES: EKG negative. Chest x-ray negative. LABORATORY DATA: White count 4.3, hemoglobin and hematocrit of 12 and 40. Electrolytes normal. Troponin 0.04 and 0.049. CK-MB 7. ASSESSMENT: 1. Chest pain, rule out myocardial infarction. 2. Gastroesophageal reflux disease. 3. Cervical cancer remission, status post chemo and radiation. 4. 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 5. Chronic proctitis. 6. Chronic anemia. PLAN: The patient is exhibiting reflux disease. In reviewing the patient's records from 02/2016 to present, she has had approximately 20 troponin levels and her lowest level was 0.023, but the bulk for troponin levels was 0.04 to 0.06. I believe the patient's main issue is reflux. She has been taking excessive amounts of Motrin, which I have instructed her to stop. She is not presently taking her Protonix. I will discharge her home on Prilosec 40 b.i.d. She is to follow up with Dr. Mayberry in the next several days. Unfortunately, the patient started on the first half of her Cardiolite test. I do not feel it would be prudent. I do not feel she should complete the Cardiolite test. It will be unnecessary test and expense. She will follow up in the office with Dr. Mayberry. She can always return to the ER at any time. She is anxious to go home. She does not have remaining vacation days and she wants to be at [employer] tomorrow. Job ID: [id number]
--- NOTE | 2018-10-01 09:49 | NM ---
REST ONLY MYOCARDIAL PERFUSION STUDY: 10/01/2018 HISTORY: Chest pain. RADIOPHARMACEUTICAL: Technetium 99m sestamibi 28.6 millicuries IV at rest. FINDINGS: Rest images were obtained on 10/01/2018. However, the patient was discharged prior to stress imaging being obtained and, as a result, ischemia is unable to be evaluated, based on rest only images. The re is a small defect seen at the ventricular apex. IMPRESSION: Limited examination, as stress imaging was not performed. As a result, ischemia is unable to be eval uated on rest only images. The patient was discharged prior to stress imaging being performed, as de scribed above. Resting images do demonstrate a defect at the ventricular apex, which could be relate d to scarring or apical thinning. POS: PETE
== END 2018-09-30 19:08 | disposition home or self-care (01) ==
LOC: ERS 12:16 → ERHOLD 14:14
PROVIDERS: ADMIT Family Medicine; ATTEND Family Medicine
DX: R07.9 Chest pain, unspecified (principal); K21.0 Gastro-esophageal reflux disease with esophagitis; M35.9 Systemic involvement of connective tissue, unspecified; K62.7 Radiation proctitis; D64.9 Anemia, unspecified; M60.9 Myositis, unspecified; Z85.41 Personal history of malignant neoplasm of cervix uteri; Z92.21 Personal history of antineoplastic chemotherapy; Z92.3 Personal history of irradiation; Z79.899 Other long term (current) drug therapy; Z98.890 Other specified postprocedural states
CPT/HCPCS: 36415; 71046; 78451; 80053; 80306; 82553; 84484; 85025; 93005; 96372; A9500; G0378; J1650; J2930

== ENCOUNTER 2020-04-28 13:25 | Emergency (ER) | payer BC ==
[2020-04-28] MEDS ORDERED: Mag-Al 1200 mg/1200 mg/30 ML UDCUP ONE (13:43)
[2020-04-28] MEDS ORDERED: Lidocaine Viscous Sol 2% 15 ml UD Cup ONE (13:43)
[2020-04-28 14:13] LABS: #Basophils 0.1 thou/uL (0.0-0.2); #Eosinphils 0.2 thou/uL (0.0-0.7); #Lymphocytes 1.6 thou/uL (1.20-3.40); #Monocytes 0.6 thou/uL (0.11-0.59); #Neutrophils 3.5 thou/uL (1.40-6.50); %Basophils 1.3 % (0.0-1.0); %Eosinophils 2.6 % (0.0-10.0); %Lymphocytes 27.2 % (21.0-51.0); %Monocytes 10.1 % (0.0-10.0); %Neutrophils 58.7 % (42.0-75.0); Hemoglobin 12.8 g/dL (12.0-16.0); Mean Corpuscular HGB CONC 33.4 g/dL (32.0-36.0); Mean Corpuscular Hemoglobin 30.5 pg (27.0-31.0); Mean Corpuscular Volume 91.2 fL (78.0-98.0); Mean Platelet Volume 8.2 fL (7.4-10.4); Platelet Count 207 thou/uL (130-400); RBC Distribution Width 12.2 % (11.5-14.5); Red Blood Cell (RBC) Count 4.21 mill/uL (4.20-5.40); White Blood Cell (WBC) Count 5.9 thou/uL (4.8-10.8)
--- NOTE | 2020-04-28 14:20 | RAD ---
PORTABLE CHEST: 04/28/20 HISTORY: Chest pain. The lungs are clear. No infiltrate or vascular congestion. Heart and mediastinum unremarkable. IMPRESSION: No acute process. POS: AGW
[2020-04-28 14:27] LABS: ALT (SGPT) 15 U/L (8-55); AST (SGOT) 19 U/L (5-34); Albumin 3.6 g/dL (3.5-5.0); Alkaline Phosphatase 57 U/L (40-110); Anion Gap 10 mmol/L (10-20); BUN (Urea Nitrogen) 8 mg/dL (7.0-18.7); Bilirubin, Total 0.5 mg/dL (0.2-1.2); Calc. Creatinine Clearance 0 mL/min (70-130); Calcium 8.9 mg/dL (7.8-10.44); Carbon Dioxide 28 mmol/L (22-29); Chloride 106 mmol/L (98-107); Estimated GFR-MDRD 89; Globulin 3.2 g/dL (2.4-3.5); Glucose 70 mg/dL (70-105); Potassium 3.6 mmol/L (3.5-5.1); Protein, Total 6.8 g/dL (6.0-8.3); Sodium 140 mmol/L (136-145)
[2020-04-28 14:49] LABS: CKMB 2.8 ng/mL (0-6.6)
== END 2020-04-28 15:40 | disposition left against medical advice (07) ==
LOC: ERS 13:25
DX: R07.89 Other chest pain (principal); R55 Syncope and collapse; R79.89 Other specified abnormal findings of blood chemistry; I10 Essential (primary) hypertension; F32.9 Major depressive disorder, single episode, unspecified; Z79.899 Other long term (current) drug therapy
CPT/HCPCS: 36415; 71045; 80053; 82553; 84484; 85025; 93005

== ENCOUNTER 2021-08-03 00:40 | Emergency (ER) | payer BC | END 2021-08-03 02:34 | disposition home or self-care (01) | LOC: ERS 00:40 | DX: R20.2 Paresthesia of skin (principal); I10 Essential (primary) hypertension | CPT/HCPCS: 99284 ==

== ENCOUNTER 2022-04-16 17:34 | Inpatient (IN) | payer BC ==
[~2022-04-16 17:34] MED LIST changes: -ISOVUE-370 76%-LOCM 1 ML ONE; +Iopamidol-370 76% 500 ML 1 ML ONE
[2022-04-16] MEDS ORDERED: cefTRIAXone\\ROCEPHIN 1 GM VIAL ONE (18:36)
[2022-04-16 18:57] LABS: Mean Corpuscular Volume 91.2 fL (78.0-98.0); Mean Platelet Volume 8.5 fL (7.4-10.4); Platelet Count 161 thou/uL (130-400); RBC Distribution Width 12.4 % (11.5-14.5); Red Blood Cell (RBC) Count 3.86 mill/uL (4.20-5.40)
[2022-04-16 19:00] LABS: Bacteria/HPF None Seen HPF (None Seen); Bilirubin Negative (Negative); Blood, Urine 2+ (Negative); Clarity Clear (Clear); Glucose, Urine (Dipstick) Normal (Negative); Ketone, Urine 10 mg/dL (Negative); Leukocyte 250 Leu/uL (Negative); Nitrite Negative (Negative); Protein, Urine (Dipstick) 70 mg/dL (Neg-Trace); Specific Gravity, Urine 1.034 (1.002-1.036); Urobilinogen Normal mg/dL (Less than 2)
[2022-04-16 19:17] LABS: Band 9 % (5-11); Lymphocytes 3 % (21-51); MDiff Complete? YES; Monocytes 5 % (0-10); Neutrophil 82 % (42-75); Platelet Morphology Comment Appears Adequate; Polychromasia SLIGHT = 2-3 cells (100X) (0-2/hpf)
[2022-04-16 19:19] LABS: ALT (SGPT) 39 U/L (8-55); AST (SGOT) 43 U/L (5-34); Albumin 3.5 g/dL (3.5-5.0); Alkaline Phosphatase 58 U/L (40-110); Anion Gap 14 mmol/L (10-20); BUN (Urea Nitrogen) 20 mg/dL (7.0-18.7); Bilirubin, Total 1.8 mg/dL (0.2-1.2); Calc. Creatinine Clearance 0 mL/min (70-130); Calcium 8.3 mg/dL (7.8-10.44); Carbon Dioxide 24 mmol/L (22-29); Chloride 101 mmol/L (98-107); Estimated GFR 64; Globulin 3.1 g/dL (2.4-3.5); Glucose 131 mg/dL (70-105); Lipase 21 U/L (8-78); Magnesium 1.3 mg/dL (1.6-2.6); Potassium 3.1 mmol/L (3.5-5.1); Protein, Total 6.6 g/dL (6.0-8.3); Sodium 136 mmol/L (136-145)
[2022-04-16 19:41] LABS: CKMB 2.4 ng/mL (0-6.6)
[2022-04-16] MEDS ORDERED: Enoxaparin Sodium 100 MG/ML SYRINGE ONE (21:29)
[2022-04-16 22:15] LABS: Troponin I 0.041 ng/mL (< 0.028)
[2022-04-16 22:44] VITALS: BMI 34.6
[2022-04-16] MEDS ORDERED: Ondansetron PF 4 MG/2 ML Vial IVP PRN (22:50)
[2022-04-16] MEDS ORDERED: Acetaminophen 650 MG Suppository PR PRN (22:50)
[2022-04-16] MEDS ORDERED: Ondansetron ODT 4 MG TAB PO PRN (22:50)
[2022-04-17] MEDS ORDERED: Potassium Chloride 20 MEQ TAB PO SCH ×2 (01:15→08:00)
[2022-04-17] MEDS ORDERED: Electrolyte Replacement Protocol 1 EACH FS SCH (01:15)
[2022-04-17 01:16] LABS: Troponin I 0.042 ng/mL (< 0.028)
[2022-04-17] MEDS ORDERED: Magnesium Sulfate In Water 4 GM in Premix Bag 1 BAG IVPB SCH (01:30)
[2022-04-17] MEDS: Acetaminophen 325 MG TAB PO PRN ×2 (04:12→20:18)
[2022-04-17 06:57] LABS: Hemoglobin 11.8 g/dL (12.0-16.0); Mean Corpuscular HGB CONC 32.3 g/dL (32.0-36.0); Mean Corpuscular Hemoglobin 30.1 pg (27.0-31.0); Mean Corpuscular Volume 93.2 fL (78.0-98.0); Platelet Count 158 thou/uL (130-400); RBC Distribution Width 12.4 % (11.5-14.5); Red Blood Cell (RBC) Count 3.92 mill/uL (4.20-5.40); White Blood Cell (WBC) Count 13.5 thou/uL (4.8-10.8)
[2022-04-17 07:00] LABS: Hemoglobin A1c 5.6 % (4.0-6.0)
[2022-04-17 07:16] LABS: Anion Gap 13 mmol/L (10-20); BUN (Urea Nitrogen) 12 mg/dL (7.0-18.7); Calc. Creatinine Clearance 138 mL/min (70-130); Calcium 8.3 mg/dL (7.8-10.44); Carbon Dioxide 24 mmol/L (22-29); Chloride 104 mmol/L (98-107); Estimated GFR 86; Glucose 97 mg/dL (70-105); Magnesium 2.3 mg/dL (1.6-2.6); Potassium 3.2 mmol/L (3.5-5.1); Sodium 138 mmol/L (136-145)
[2022-04-17] MEDS: Apixaban 5 MG TAB PO SCH ×2 (08:28→20:07)
[2022-04-17 08:37] LABS: Band 25 % (5-11); Lymphocytes 4 % (21-51); MDiff Complete? YES; Monocytes 3 % (0-10); Neutrophil 68 % (42-75); Platelet Morphology Comment Appears Adequate; RBC Morphology Normal
[2022-04-17] MEDS ORDERED: Enoxaparin Sodium 100 MG/ML SYRINGE SC SCH (09:00)
[2022-04-17 13:02] LABS: Anion Gap 12 mmol/L (10-20); BUN (Urea Nitrogen) 10 mg/dL (7.0-18.7); Calc. Creatinine Clearance 131 mL/min (70-130); Calcium 8.6 mg/dL (7.8-10.44); Carbon Dioxide 26 mmol/L (22-29); Chloride 103 mmol/L (98-107); Estimated GFR 82; Glucose 109 mg/dL (70-105); Potassium 3.5 mmol/L (3.5-5.1); Sodium 137 mmol/L (136-145)
[2022-04-17] MEDS ORDERED: cefTRIAXone\\ROCEPHIN 1 GM in Sodium Chloride 0.9% 100 ML IVPB SCH (21:00)
[2022-04-18] MEDS: Acetaminophen 325 MG TAB PO PRN ×3 (04:51→21:30)
[2022-04-18 05:00] LABS: #Eosinphils 0.1 thou/uL (0.0-0.7); #Lymphocytes 1.1 thou/uL (1.20-3.40); #Monocytes 0.9 thou/uL (0.11-0.59); #Neutrophils 9.9 thou/uL (1.40-6.50); %Basophils 0.1 % (0.0-1.0); %Eosinophils 0.9 % (0.0-10.0); %Lymphocytes 8.9 % (21.0-51.0); %Monocytes 7.8 % (0.0-10.0); %Neutrophils 82.3 % (42.0-75.0); Hemoglobin 11.4 g/dL (12.0-16.0); Mean Corpuscular HGB CONC 32.8 g/dL (32.0-36.0); Mean Corpuscular Hemoglobin 30.3 pg (27.0-31.0); Mean Corpuscular Volume 92.4 fL (78.0-98.0); Mean Platelet Volume 8.5 fL (7.4-10.4); Platelet Count 167 thou/uL (130-400); RBC Distribution Width 12.4 % (11.5-14.5); Red Blood Cell (RBC) Count 3.75 mill/uL (4.20-5.40)
[2022-04-18 05:20] LABS: Anion Gap 12 mmol/L (10-20); BUN (Urea Nitrogen) 9 mg/dL (7.0-18.7); Calc. Creatinine Clearance 150 mL/min (70-130); Calcium 8.6 mg/dL (7.8-10.44); Carbon Dioxide 25 mmol/L (22-29); Chloride 105 mmol/L (98-107); Estimated GFR 96; Glucose 101 mg/dL (70-105); Potassium 3.6 mmol/L (3.5-5.1); Sodium 138 mmol/L (136-145)
[2022-04-18] MEDS ORDERED: Piperacillin/Tazobactam 3.375 GM in Sodium Chloride 0.9% 100 ML IVPB SCH (08:00)
[2022-04-18] MEDS: Apixaban 5 MG TAB PO SCH ×2 (08:10→21:31)
[2022-04-18] MEDS: Piperacillin/Tazobactam 3.375 GM in Sodium Chloride 0.9% 100 ML IVPB SCH ×2 (11:49→21:31)
[2022-04-18] MEDS ORDERED: Iopamidol 370 76% 100 ML VIAL ONE (15:10)
[2022-04-19] MEDS: Piperacillin/Tazobactam 3.375 GM in Sodium Chloride 0.9% 100 ML IVPB SCH ×3 (04:47→21:42)
[2022-04-19] MEDS: Acetaminophen 325 MG TAB PO PRN ×3 (04:47→21:43)
[2022-04-19 07:26] LABS: Anion Gap 14 mmol/L (10-20); BUN (Urea Nitrogen) 8 mg/dL (7.0-18.7); Calc. Creatinine Clearance 155 mL/min (70-130); Calcium 8.6 mg/dL (7.8-10.44); Carbon Dioxide 25 mmol/L (22-29); Chloride 105 mmol/L (98-107); Estimated GFR 99; Glucose 98 mg/dL (70-105); Potassium 3.5 mmol/L (3.5-5.1); Sodium 140 mmol/L (136-145)
[2022-04-19] MEDS: Apixaban 5 MG TAB PO SCH ×2 (08:31→21:43)
[2022-04-19 08:56] LABS: Band 5 % (5-11); Eosinophils 2 % (0-10); Hypochromia SLIGHT = 6-15 cells (100X) (0-5/hpf); Lymphocytes 5 % (21-51); MDiff Complete? YES; Mean Corpuscular HGB CONC 32.4 g/dL (32.0-36.0); Mean Corpuscular Hemoglobin 30.1 pg (27.0-31.0); Mean Corpuscular Volume 92.8 fL (78.0-98.0); Mean Platelet Volume 8.2 fL (7.4-10.4); Monocytes 7 % (0-10); Neutrophil 81 % (42-75); Platelet Count 205 thou/uL (130-400); Platelet Morphology Comment Appears Adequate; RBC Distribution Width 12.4 % (11.5-14.5); Red Blood Cell (RBC) Count 3.67 mill/uL (4.20-5.40); White Blood Cell (WBC) Count 11.2 thou/uL (4.8-10.8)
[2022-04-19] MEDS ORDERED: Potassium Chloride 20 MEQ TAB PO SCH (14:15)
[2022-04-20] MEDS: Piperacillin/Tazobactam 3.375 GM in Sodium Chloride 0.9% 100 ML IVPB SCH ×3 (04:07→20:17)
[2022-04-20 07:33] LABS: Band 3 % (5-11); Eosinophils 2 % (0-10); Hemoglobin 11.1 g/dL (12.0-16.0); Hypochromia SLIGHT = 6-15 cells (100X) (0-5/hpf); Lymphocytes 15 % (21-51); MDiff Complete? YES; Mean Corpuscular HGB CONC 32.6 g/dL (32.0-36.0); Mean Corpuscular Hemoglobin 30.4 pg (27.0-31.0); Mean Corpuscular Volume 93.1 fL (78.0-98.0); Mean Platelet Volume 7.8 fL (7.4-10.4); Metamyelocyte 1 % (0-0); Monocytes 7 % (0-10); Neutrophil 72 % (42-75); Platelet Count 218 thou/uL (130-400); Platelet Morphology Comment Appears Adequate; RBC Distribution Width 12.4 % (11.5-14.5); Red Blood Cell (RBC) Count 3.65 mill/uL (4.20-5.40); White Blood Cell (WBC) Count 11.3 thou/uL (4.8-10.8)
[2022-04-20] MEDS: Apixaban 5 MG TAB PO SCH ×2 (08:09→20:15)
[2022-04-20] MEDS: Vancomycin 1.5 GRAM/300 ML BAG 1.5 GM in Premix Bag 1 BAG IVPB SCH (15:30)
[2022-04-20] MEDS: Acetaminophen 325 MG TAB PO PRN (20:15)
[2022-04-21] MEDS: Vancomycin 1.5 GRAM/300 ML BAG 1.5 GM in Premix Bag 1 BAG IVPB SCH ×2 (02:45→14:43)
[2022-04-21] MEDS: Piperacillin/Tazobactam 3.375 GM in Sodium Chloride 0.9% 100 ML IVPB SCH ×3 (05:24→22:18)
[2022-04-21 06:54] LABS: #Eosinphils 0.2 thou/uL (0.0-0.7); #Lymphocytes 1.5 thou/uL (1.20-3.40); #Monocytes 1.1 thou/uL (0.11-0.59); #Neutrophils 9.1 thou/uL (1.40-6.50); %Basophils 0.1 % (0.0-1.0); %Lymphocytes 12.4 % (21.0-51.0); %Monocytes 9.5 % (0.0-10.0); %Neutrophils 76.1 % (42.0-75.0); Hemoglobin 11.3 g/dL (12.0-16.0); Mean Corpuscular HGB CONC 32.6 g/dL (32.0-36.0); Mean Corpuscular Hemoglobin 30.5 pg (27.0-31.0); Mean Corpuscular Volume 93.5 fL (78.0-98.0); Mean Platelet Volume 7.8 fL (7.4-10.4); Platelet Count 253 thou/uL (130-400); RBC Distribution Width 12.4 % (11.5-14.5); White Blood Cell (WBC) Count 11.9 thou/uL (4.8-10.8)
[2022-04-21 07:19] LABS: Anion Gap 13 mmol/L (10-20); BUN (Urea Nitrogen) 7 mg/dL (7.0-18.7); Calc. Creatinine Clearance 138 mL/min (70-130); Calcium 8.8 mg/dL (7.8-10.44); Carbon Dioxide 26 mmol/L (22-29); Chloride 105 mmol/L (98-107); Estimated GFR 86; Glucose 102 mg/dL (70-105); Potassium 3.9 mmol/L (3.5-5.1); Sodium 140 mmol/L (136-145)
[2022-04-21] MEDS: Apixaban 5 MG TAB PO SCH ×2 (08:25→20:37)
[2022-04-21] MEDS: Acetaminophen 325 MG TAB PO PRN (20:36)
[2022-04-22 02:43] LABS: Vancomycin, Trough 8.8 ug/mL
[2022-04-22] MEDS: Vancomycin 1.5 GRAM/300 ML BAG 1.5 GM in Premix Bag 1 BAG IVPB SCH ×2 (03:53→11:05)
[2022-04-22] MEDS: Acetaminophen 325 MG TAB PO PRN (05:16)
[2022-04-22] MEDS: Piperacillin/Tazobactam 3.375 GM in Sodium Chloride 0.9% 100 ML IVPB SCH ×2 (06:48→13:58)
[2022-04-22] MEDS: Apixaban 5 MG TAB PO SCH ×2 (08:32→17:43)
[2022-04-22 08:35] LABS: INR-International Normal Ratio 1.3; Prothrombin Time 16.1 sec (12.0-14.7)
[2022-04-22 08:36] LABS: PTT 39.9 sec (22.9-36.1)
[2022-04-22] MEDS ORDERED: diphenhydrAMINE 25 MG CAP PO SCH (16:00)
[2022-04-22 18:17] VITALS: BP 126/77; TEMP 98.2
== END 2022-04-22 18:05 | disposition home health service (06) | DRG 300 ==
LOC: ERS 17:34 → 2SW 21:15 → OBSVTOIN 04-17 11:11 → T4-B 04-18 18:41
PROVIDERS: ADMIT Internal Medicine; ATTEND Internal Medicine
DX: I82.432 Acute embolism and thrombosis of left popliteal vein (principal); L03.116 Cellulitis of left lower limb; N39.0 Urinary tract infection, site not specified; I82.442 Acute embolism and thrombosis of left tibial vein; Z20.822 Contact with and (suspected) exposure to COVID-19; I10 Essential (primary) hypertension; F32.A Depression, unspecified; E87.6 Hypokalemia; R77.8 Other specified abnormalities of plasma proteins; C53.9 Malignant neoplasm of cervix uteri, unspecified; Z79.899 Other long term (current) drug therapy; Z92.3 Personal history of irradiation; Z98.51 Tubal ligation status
CPT/HCPCS: 36415; 71275; 74177; 80048; 80053; 80202; 81003; 81015; 82553; 83036; 83605; 83690; 83735; 84484; 85025; 85610; 85730; 87040; 87070; 87086; 87205; 93005; 96361; 96366; 96367; 96372; 96374; 97139; G0378; J0696; J1650; J2543; J3370; J3475; J3490; Q9967; U0003; U0005

== ENCOUNTER 2022-10-24 03:01 | Inpatient (IN) | payer BC ==
[2022-10-24 04:17] LABS: #Eosinphils 0.1 thou/uL (0.0-0.7); #Lymphocytes 1.5 thou/uL (1.20-3.40); #Monocytes 0.5 thou/uL (0.11-0.59); #Neutrophils 2.7 thou/uL (1.40-6.50); %Basophils 0.7 % (0.0-1.0); %Eosinophils 2.2 % (0.0-10.0); %Lymphocytes 30.9 % (21.0-51.0); %Monocytes 9.7 % (0.0-10.0); %Neutrophils 56.5 % (42.0-75.0); Hemoglobin 12.2 g/dL (12.0-16.0); Mean Corpuscular HGB CONC 32.8 g/dL (32.0-36.0); Mean Corpuscular Hemoglobin 29.7 pg (27.0-31.0); Mean Corpuscular Volume 90.6 fl (78.0-98.0); Mean Platelet Volume 8.3 fL (7.4-10.4); Platelet Count 189 10x3/uL (130-400); RBC Distribution Width 12.4 % (11.5-14.5); Red Blood Cell (RBC) Count 4.12 mill/uL (4.20-5.40); White Blood Cell (WBC) Count 4.8 10x3/uL (4.8-10.8)
[2022-10-24 04:42] LABS: ALT (SGPT) 12 U/L (8-55); AST (SGOT) 17 U/L (5-34); Albumin 3.5 g/dL (3.5-5.0); Alkaline Phosphatase 50 U/L (40-110); Anion Gap 10 mmol/L (10-20); BUN (Urea Nitrogen) 12 mg/dL (7.0-18.7); Calc. Creatinine Clearance 0 mL/min (70-130); Calcium 8.9 mg/dL (7.8-10.44); Carbon Dioxide 26 mmol/L (22-29); Chloride 106 mmol/L (98-107); Estimated GFR 79; Globulin 3.4 g/dL (2.4-3.5); Glucose 98 mg/dL (70-105); Potassium 3.1 mmol/L (3.5-5.1); Protein, Total 6.9 g/dL (6.0-8.3); Sodium 139 mmol/L (136-145)
[2022-10-24 05:02] LABS: CKMB 2.4 ng/mL (0-6.6)
[2022-10-24 07:36] LABS: Troponin I 0.053 ng/mL (< 0.028)
[2022-10-24] MEDS ORDERED: Potassium Chloride 20 MEQ TAB PO SCH ×2 (08:30→15:15)
[2022-10-24] MEDS ORDERED: Electrolyte Replacement Protocol 1 EACH FS SCH (08:30)
[2022-10-24 08:42] LABS: Magnesium 1.6 mg/dL (1.6-2.6)
[2022-10-24 10:30] LABS: Troponin I 0.048 ng/mL (< 0.028)
[2022-10-24 11:08] VITALS: BMI 31.4
[2022-10-24] MEDS ORDERED: Ondansetron PF 4 MG/2 ML Vial IVP PRN (11:18)
[2022-10-24] MEDS ORDERED: Acetaminophen 325 MG TAB PO PRN (11:18)
[2022-10-24] MEDS ORDERED: Ondansetron ODT 4 MG TAB PO PRN (11:18)
[2022-10-24 12:50] LABS: CKMB 2.1 ng/mL (0-6.6)
[2022-10-24] MEDS ORDERED: Magnesium 2 GM/50 ML(in water) 2 GM in Premix Bag 1 BAG IVPB SCH (13:45)
[2022-10-24 14:53] LABS: Amphetamine Not Detected (NotDetected); Barbiturates Screen Not Detected (NotDetected); Benzodiazepine Screen Not Detected (NotDetected); Cocaine Metabolite Screen Not Detected (NotDetected); Methadone Not Detected (NotDetected); Methamphetamine Not Detected (NotDetected); Opiate Screen Detected (NotDetected); Oxycodone Screen Not Detected (NotDetected); Phencyclidine (PCP) Not Detected (NotDetected); THC/Cannabinoid Screen Not Detected (NotDetected); Tricyclic Screen Not Detected (NotDetected)
[2022-10-24] MEDS ORDERED: ISOVUE-370 76%-LOCM 1 ML ONE (15:04)
[2022-10-24] MEDS ORDERED: Communication Order-Pharmacy FS ONE (15:16)
[2022-10-24 16:07] LABS: CKMB 2.1 ng/mL (0-6.6)
[2022-10-24] MEDS ORDERED: Warfarin Sodium 5 MG TAB PO SCH (17:30)
[2022-10-24 17:38] LABS: Prothrombin Time 13.8 sec (12.0-14.7)
[2022-10-24] MEDS: Metoprolol Tartrate 25 MG TAB PO SCH (20:13)
[2022-10-24] MEDS ORDERED: Apixaban 5 MG TAB PO SCH (21:00)
[2022-10-25 05:05] LABS: #Eosinphils 0.1 thou/uL (0.0-0.7); #Lymphocytes 1.5 thou/uL (1.20-3.40); #Monocytes 0.4 thou/uL (0.11-0.59); #Neutrophils 2.4 thou/uL (1.40-6.50); %Basophils 0.9 % (0.0-1.0); %Eosinophils 2.9 % (0.0-10.0); %Lymphocytes 33.2 % (21.0-51.0); %Monocytes 9.7 % (0.0-10.0); %Neutrophils 53.3 % (42.0-75.0); Hemoglobin 12.9 g/dL (12.0-16.0); Mean Corpuscular Hemoglobin 29.5 pg (27.0-31.0); Mean Corpuscular Volume 92.2 fl (78.0-98.0); Mean Platelet Volume 8.3 fL (7.4-10.4); Platelet Count 200 10x3/uL (130-400); RBC Distribution Width 12.2 % (11.5-14.5); Red Blood Cell (RBC) Count 4.36 mill/uL (4.20-5.40); White Blood Cell (WBC) Count 4.5 10x3/uL (4.8-10.8)
[2022-10-25 05:07] LABS: Prothrombin Time 13.8 sec (12.0-14.7)
[2022-10-25 05:18] LABS: Anion Gap 11 mmol/L (10-20); BUN (Urea Nitrogen) 11 mg/dL (7.0-18.7); Calc. Creatinine Clearance 119 mL/min (70-130); Calcium 9.2 mg/dL (7.8-10.44); Carbon Dioxide 25 mmol/L (22-29); Chloride 108 mmol/L (98-107); Estimated GFR 82; Glucose 88 mg/dL (70-105); Sodium 140 mmol/L (136-145)
[2022-10-25] MEDS ORDERED: Potassium Chloride 20 MEQ TAB PO SCH (08:00)
[2022-10-25] MEDS ORDERED: Furosemide 40 MG TAB PO SCH (09:00)
[2022-10-25] MEDS: Metoprolol Tartrate 25 MG TAB PO SCH (11:52)
[2022-10-25 12:17] VITALS: BP 120/70; TEMP 97.3
[2022-10-25] MEDS ORDERED: Warfarin Sodium 5 MG TAB PO SCH (17:00)
== END 2022-10-25 18:10 | disposition home or self-care (01) | DRG 301 ==
LOC: ERS 03:01 → 2NO 08:14
PROVIDERS: ADMIT Internal Medicine; ATTEND Internal Medicine
DX: I82.411 Acute embolism and thrombosis of right femoral vein (principal); R07.9 Chest pain, unspecified; Z20.822 Contact with and (suspected) exposure to COVID-19; I10 Essential (primary) hypertension; R77.8 Other specified abnormalities of plasma proteins; E87.6 Hypokalemia; Z79.899 Other long term (current) drug therapy; Z79.01 Long term (current) use of anticoagulants; Z98.51 Tubal ligation status; Z98.890 Other specified postprocedural states; Z85.41 Personal history of malignant neoplasm of cervix uteri; Z92.21 Personal history of antineoplastic chemotherapy; Z92.3 Personal history of irradiation; Z86.718 Personal history of other venous thrombosis and embolism
CPT/HCPCS: 36415; 71045; 71275; 78452; 80048; 80053; 80306; 82553; 83735; 83880; 84484; 85025; 85379; 85610; 93005; 93017; 93970; A9500; J1650; J3475; Q9966; U0003; U0005

== ENCOUNTER 2023-04-09 19:08 | Emergency (ER) | payer BC ==
[2023-04-09 19:51] LABS: #Eosinphils 0.1 thou/uL (0.0-0.7); #Monocytes 0.5 thou/uL (0.11-0.59); #Neutrophils 3.5 thou/uL (1.40-6.50); %Basophils 0.7 % (0.0-1.0); %Eosinophils 2.5 % (0.0-10.0); %Lymphocytes 25.6 % (21.0-51.0); %Monocytes 9.3 % (0.0-10.0); %Neutrophils 61.7 % (42.0-75.0); Hematocrit 37.1 % (36.0-47.0); Hemoglobin 12.2 g/dL (12.0-16.0); Mean Corpuscular HGB CONC 32.9 g/dL (32.0-36.0); Mean Corpuscular Hemoglobin 29.5 pg (27.0-31.0); Mean Corpuscular Volume 89.6 fl (78.0-98.0); Mean Platelet Volume 9.9 fL (7.4-10.4); Platelet Count 232 10x3/uL (130-400); RBC Distribution Width 13.3 % (11.5-14.5); Red Blood Cell (RBC) Count 4.14 mill/uL (4.20-5.40); White Blood Cell (WBC) Count 5.6 10x3/uL (4.8-10.8)
[2023-04-09 20:19] LABS: ALT (SGPT) 24 U/L (8-55); AST (SGOT) 30 U/L (5-34); Albumin 3.7 g/dL (3.5-5.0); Alkaline Phosphatase 53 U/L (40-110); Anion Gap 10 mmol/L (10-20); BUN (Urea Nitrogen) 10 mg/dL (7.0-18.7); Bilirubin, Total 0.5 mg/dL (0.2-1.2); Calc. Creatinine Clearance 0 mL/min (70-130); Calcium 9.6 mg/dL (7.8-10.44); Carbon Dioxide 26 mmol/L (22-29); Chloride 107 mmol/L (98-107); Estimated GFR 74; Globulin 3.4 g/dL (2.4-3.5); Glucose 95 mg/dL (70-105); Potassium 3.5 mmol/L (3.5-5.1); Protein, Total 7.1 g/dL (6.0-8.3); Sodium 139 mmol/L (136-145)
== END 2023-04-09 23:24 | disposition home or self-care (01) ==
LOC: ERS 19:08
DX: R22.42 Localized swelling, mass and lump, left lower limb (principal); I10 Essential (primary) hypertension; Z79.01 Long term (current) use of anticoagulants
CPT/HCPCS: 36415; 71045; 80053; 83880; 85025; 93005

== ENCOUNTER 2023-09-19 09:41 | Emergency (ER) | payer BC ==
[2023-09-19] MEDS ORDERED: Ondansetron ODT 4 MG TAB ONE (10:11)
[2023-09-19 10:30] LABS: #Eosinphils 0.1 thou/uL (0.0-0.7); #Monocytes 0.5 thou/uL (0.11-0.59); %Basophils 0.9 % (0.0-1.0); %Eosinophils 2.6 % (0.0-10.0); %Lymphocytes 22.6 % (21.0-51.0); %Monocytes 9.6 % (0.0-10.0); %Neutrophils 64.1 % (42.0-75.0); Hematocrit 36.9 % (36.0-47.0); Mean Corpuscular HGB CONC 32.5 g/dL (32.0-36.0); Mean Corpuscular Hemoglobin 29.5 pg (27.0-31.0); Mean Corpuscular Volume 90.7 fl (78.0-98.0); Mean Platelet Volume 9.9 fL (7.4-10.4); Platelet Count 215 10x3/uL (130-400); RBC Distribution Width 13.2 % (11.5-14.5); Red Blood Cell (RBC) Count 4.07 mill/uL (4.20-5.40); White Blood Cell (WBC) Count 4.7 10x3/uL (4.8-10.8)
[2023-09-19 11:00] LABS: ALT (SGPT) 18 U/L (8-55); AST (SGOT) 19 U/L (5-34); Albumin 3.7 g/dL (3.5-5.0); Alkaline Phosphatase 52 U/L (40-110); Anion Gap 9 mmol/L (10-20); BUN (Urea Nitrogen) 8 mg/dL (7.0-18.7); Bilirubin, Total 0.7 mg/dL (0.2-1.2); Calc. Creatinine Clearance 0 mL/min (70-130); Calcium 9.1 mg/dL (7.8-10.44); Carbon Dioxide 29 mmol/L (22-29); Chloride 107 mmol/L (98-107); Estimated GFR 81; Globulin 3.4 g/dL (2.4-3.5); Glucose 83 mg/dL (70-105); Lipase 30 U/L (8-78); Potassium 3.7 mmol/L (3.5-5.1); Protein, Total 7.1 g/dL (6.0-8.3); Sodium 141 mmol/L (136-145)
== END 2023-09-19 11:52 | disposition home or self-care (01) ==
LOC: ERS 09:41
DX: R11.0 Nausea (principal); I10 Essential (primary) hypertension
CPT/HCPCS: 36415; 80053; 83690; 85025; 99283; Q0162

== ENCOUNTER 2023-10-14 12:44 | Emergency (ER) | payer BC ==
[2023-10-14 13:23] LABS: #Eosinphils 0.2 thou/uL (0.0-0.7); #Monocytes 0.6 thou/uL (0.11-0.59); #Neutrophils 3.5 thou/uL (1.40-6.50); %Basophils 0.7 % (0.0-1.0); %Eosinophils 2.7 % (0.0-10.0); %Lymphocytes 24.3 % (21.0-51.0); %Monocytes 9.9 % (0.0-10.0); %Neutrophils 62.2 % (42.0-75.0); Hematocrit 38.6 % (36.0-47.0); Hemoglobin 12.8 g/dL (12.0-16.0); Mean Corpuscular HGB CONC 33.2 g/dL (32.0-36.0); Mean Corpuscular Hemoglobin 29.8 pg (27.0-31.0); Mean Corpuscular Volume 89.8 fl (78.0-98.0); Mean Platelet Volume 9.6 fL (7.4-10.4); Platelet Count 234 10x3/uL (130-400); RBC Distribution Width 13.2 % (11.5-14.5); White Blood Cell (WBC) Count 5.6 10x3/uL (4.8-10.8)
[2023-10-14 13:43] LABS: Troponin I 0.067 ng/mL (< 0.028)
[2023-10-14 13:47] LABS: ALT (SGPT) 18 U/L (8-55); AST (SGOT) 20 U/L (5-34); Albumin 3.7 g/dL (3.5-5.0); Alkaline Phosphatase 58 U/L (40-110); Anion Gap 10 mmol/L (10-20); BUN (Urea Nitrogen) 9 mg/dL (9.8-20.1); Bilirubin, Total 0.6 mg/dL (0.2-1.2); Calc. Creatinine Clearance 0 mL/min (70-130); Carbon Dioxide 27 mmol/L (22-29); Chloride 107 mmol/L (98-107); Estimated GFR 85; Globulin 3.6 g/dL (2.4-3.5); Glucose 96 mg/dL (70-105); Lipase 40 U/L (8-78); Potassium 4.2 mmol/L (3.5-5.1); Protein, Total 7.3 g/dL (6.0-8.3); Sodium 140 mmol/L (136-145)
== END 2023-10-14 15:38 | disposition home or self-care (01) ==
LOC: ERS 12:44
DX: R07.9 Chest pain, unspecified (principal); I11.0 Hypertensive heart disease with heart failure; I50.9 Heart failure, unspecified; Z79.899 Other long term (current) drug therapy
CPT/HCPCS: 36415; 71045; 80053; 83690; 83880; 84484; 85025; 93005

== ENCOUNTER 2025-08-16 07:23 | Emergency (ER) | payer BC, OTHER | END 2025-08-16 08:25 | disposition home or self-care (01) | LOC: ERS 07:23 | DX: J06.9 Acute upper respiratory infection, unspecified (principal); B97.89 Other viral agents as the cause of diseases classified elsewhere; I10 Essential (primary) hypertension; Z86.718 Personal history of other venous thrombosis and embolism | CPT/HCPCS: 87081; 87428; 87430 ==